=== PATIENT | female | born 1945 | race African-American/Black ===

== ENCOUNTER 2016-10-06 14:40 | Emergency (ER) | payer OTHER ==
[2016-10-06] MEDS ORDERED: IPRATROPIUM/ALBUTEROL SULFATE 3 ML AMPUL.NEB NEB ONE (14:43)
--- NOTE | 2016-10-06 14:47 | ED Physician Documentation ---
General Adult - HISTORIAN Historian: patient - HPI Stated Complaint: SOB Chief Complaint: General Adult Additional Information: SOB since 10/04/16. Came to town from home in [facility] for sister's ; unable to attend because SOB - ROS CONST: denies: fever - PAST HX Past History: other (lung cancer) Other History: other (NIDDM) Surgeries/Procedures: other (pulmonary resection "25% of one lung.") Allergies/Adverse Reactions: Allergies Allergy/AdvReac Type Severity Reaction Status Date / Time codeine Allergy Verified 10/06/16 15:11 Home Medications: Ambulatory Orders Medication Instructions Recorded Aspirin [Aspirin EC] 81 mg PO DAILY 10/06/16 Cholecalciferol (Vitamin D3) 2,000 unit PO DAILY 10/06/16 [Vitamin D3] Lovastatin [Lovastatin] 40 mg PO DAILY 10/06/16 Metformin HCl [Glucophage] 500 mg PO BID 10/06/16 Quinapril/Hydrochlorothiazide 1 tab PO DAILY 10/06/16 [Quinapril-Hctz 20-25 mg Tab] - SOCIAL HX Smoking History: non-smoker, quit greater than 1 year - FAMILY HX Family History: No - REVIEWED ASSESSMENTS Nursing Assessment Reviewed: Yes Vitals Reviewed: Yes Progress - Progress Progress: Portable view chest Clinical history: Cough and short of breath Findings: There is elevation of the diaphragm with a questionable small right pleural effusion. Heart size is enlarged with pulmonary venous congestion. No pneumothorax. Impression: 1. Pulmonary venous congestion. 2. Elevation of the right hemidiaphragm with questionable small right pleural effusion versus pleural thickening. Electronically signed on Oct 06, 2016 3:09:51 PM CUSTOMER CARE CONSULTANT by: Bautista Galdamez EKG: sinus rhythm, 92 BPM, RVH Venous gases: pH 7.46, pCO2 <40, pO2, <11, HCO3 >28.4, BE 4.2, TCO2 29.6, saO2 13% 1544, spoke with Brandyn at [facility] about patient transfer. 1609, Accepted for admission to [facility] per Dr. Buckley. ED Results Lab/Radiology - Orders Orders: ED Orders Category Date Time Status Assess pulse oximetry Q1H Care 10/06/16 14:43 Ordered Continuous EKG monitoring Q1H Care 10/06/16 14:[address] Saline Lock/IV Now Care 10/06/16 14:43 Ordered CHEST 1 VIEW [RAD] Stat Exams 10/06/16 Ordered ARTERIAL BLOOD GAS Stat Lab 10/06/16 Uncollected CBC/PLATELET/DIFF Routine Lab 10/06/16 Ordered CMP Routine Lab 10/06/16 Ordered TROPONIN I (cTnI) Stat Lab 10/06/16 Ordered URINALYSIS Routine Lab 10/06/16 Ordered Ipratropium/Albuterol Sulfate [Duoneb] Med 10/06/16 14:43 Once 3 ml NEB NOW ONE Oxygen Daily Oxygen 10/06/16 14:45 Ordered EKG WITH COMPARISON Stat Ther 10/06/16 Ordered General Adult Physical Exam - PHYSICAL EXAM GENERAL APPEARANCE: severe distress (pulse ox 63-65% on RA, unable to answer questions as she says she can't remember) EENT: eye inspection normal, ENT inspection normal, pharynx normal NECK: normal inspection, supple RESPIRATORY: breath sounds normal CVS: reg rate & rhythm, heart sounds normal, no murmur ABDOMEN: soft, normal bowel sounds, non-tender RECTAL: deferred BACK: normal inspection SKIN: warm/dry, pallor EXTREMITIES: non-tender, no evidence of injury NEURO: CN's nml as tested, motor nml, sensation nml, cognition normal (after oxygen and Duoneb) Discharge Clincal Impression: Respiratory distress, acute Home Medications: Ambulatory Orders Aspirin [Aspirin EC] 81 mg PO DAILY 10/06/16 Cholecalciferol (Vitamin D3) [Vitamin D3] 2,000 unit PO DAILY 10/06/16 Lovastatin [Lovastatin] 40 mg PO DAILY 10/06/16 Metformin HCl [Glucophage] 500 mg PO BID 10/06/16 Quinapril/Hydrochlorothiazide [Quinapril-Hctz 20-25 mg Tab] 1 tab PO DAILY 10/06 Condition: Fair Disposition: 02 XFER SHT-TRM HOSP Decision to Admit: NO Decision Time: 16:09
[2016-10-06 14:57] LABS: BASOPHILS % 0.4 (0.0-1.5); EOSINOPHILS % 1.2 % (0.0-6.8); LYMPHOCYTES # 1.4 # k/uL (0.6-4.0); MEAN CORPUSCULAR HEMOGLOBIN 24.6 pg (28.0-34.0); MONOCYTES # 0.3 # k/uL (0.0-0.9); MONOCYTES % 4.4 % (0.0-11.0); NEUTROPHILS # 4.8 # k/uL (1.4-7.7)
[2016-10-06 15:15] LABS: eGFR (African) > 60; eGFR (Non-African) > 60
[2016-10-06 16:59] VITALS: BP 127/52
--- NOTE | 2016-10-06 17:02 | Diagnostic Imaging Report ---
[facility] [address] [facility].[address] [address] ~ ~ ~ ~ Report Submission Date: Oct 06, 2016 3:09:51 PM DIRECTOR OF VITAL STATISTICS Patient ~ Study Name: TOSHA SOMERS ~ Date: Oct 06, 2016 2:56:45 PM DIRECTOR OF VITAL STATISTICS ~ Modality Type: CR Gender: F ~ Description: CHEST : 47 ~ Institution: [facility] Physician: JOSE TEMPLE ~ ~ ~ ~ Portable view chest Clinical history: Cough and short of breath Findings: There is elevation of the diaphragm with a questionable small right pleural effusion. Heart size is enlarged with pulmonary venous congestion. No pneumothorax. Impression: 1. Pulmonary venous congestion. 2. Elevation of the right hemidiaphragm with questionable small right pleural effusion versus pleural thickening. ~ Electronically signed on Oct 06, 2016 3:09:51 PM DIRECTOR OF VITAL STATISTICS by: Bautista UP
[2016-10-07 08:16] LABS: PH BG VENOUS 7.46 (7.32-7.43)
== END 2016-10-06 16:25 | disposition short-term general hospital (02) ==
LOC: ED 14:40
DX: R09.02 Hypoxemia (principal); R06.00 Dyspnea, unspecified; J90 Pleural effusion, not elsewhere classified; Z87.891 Personal history of nicotine dependence
CPT/HCPCS: 36415; 71010; 80053; 82805; 83880; 84484; 85025; 87400; 94640; 99284; S1016